=== PATIENT | male | born 1945 | race Caucasian/White ===

== ENCOUNTER 2016-08-17 09:40 | Emergency (ER) | payer OTHER, MEDICARE ==
[~2016-08-17] VITALS: Ht 177.8 cm; Wt 90.0 kg
[~2016-08-17 09:40] MED LIST: ALAV10TA10; ETOD300; OMEP20CA5; PROS5TAB2; TERA10CA3; Z.0.UNKNOWN
[2016-08-17 09:42] VITALS: BP 118/80; PULSE 100; RESP 18; TEMP 97.9; O2SAT 95
--- NOTE | 2016-08-17 09:52 | PD ---
Physical Exam Time Seen by Provider: 09:51 Narrative 71yo M [facility] for [facility] and no improvement despite antibiotics. Denies SOB or chest pain. Reports cough. Unknown fever. HX COPD. Patient seen in triage. VS reviewed. Awaiting bed placement. Data Data Last Documented VS Vital Signs Date Time Temp Pulse Resp B/P Pulse Ox O2 Delivery O2 Flow Rate FiO2 08/17/16 09:42 97.9 100 18 118/80 95 Room Air MDM Supervised Visit with DEL: Frieda Moe Aug 17, 2016 09:52
[2016-08-17 10:01] VITALS: BP 131/71; PULSE 85; RESP 15; TEMP 98.4; O2SAT 97
--- NOTE | 2016-08-17 10:14 | PD ---
HPI Chief Complaint: Cold / Flu Symptoms Time Seen by Provider: 09:59 Travel History International Travel<30 days: No Contact w/Intl Traveler<30days: No Traveled to known affect area: No History of Present Illness HPI 71-year-old male presents emergency department for evaluation of cough going on for the past 8 weeks. Patient does endorse history of COPD but denies smoking history. [facility] completed a course of [facility] for pneumonia and was sent here because he is still having symptoms. He states no objective fever but has no some intermittent chills. No nausea no vomiting no shortness of breath no chest pain no diarrhea. Patient does endorse cough productive of green sputum. 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) High Cholesterol: Yes Congestive Heart Failure: No COPD: Yes Dementia: Yes Diabetes: Yes Patient Takes Glucophage: No Diminished Hearing: No GERD: Yes (HIATAL HERNIA) Genitourinary: Yes (enlarged prostate) Hypertension: Yes Neurologic: Yes Respiratory: Yes (COPD) Myocardial Infarction: No Past Surgical History Surgical History: No Previous Surgery Abdominal Surgery: No Coronary Artery Bypass Graft: No Social History Alcohol Use: No Tobacco Use: No Substance Use: No Allergies-Medications (Allergen,Severity, Reaction): Coded Allergies: Niacin (Verified Allergy, Unknown, 08/17/16) Reported Meds & Prescriptions Reported Meds & Active Scripts Active Proair Hfa 8.5 GM Inh (Albuterol Sulfate) 90 Mcg/Act Aer 2 Puff INH Q4-6H PRN 108 mcg/actuation Review of Systems Except as stated in HPI: all other systems reviewed are Neg Physical Exam Narrative GENERAL: Well-developed well-nourished no apparent distress. Occasional dry cough. SKIN: Focused skin assessment warm/dry. HEAD: Atraumatic. Normocephalic. EYES: Pupils equal and round. No scleral icterus. No injection or drainage. ENT: No nasal bleeding or discharge. Mucous membranes pink and moist. NECK: Trachea midline. No JVD. CARDIOVASCULAR: Regular rate and rhythm. No murmur appreciated. RESPIRATORY: No accessory muscle use. Clear to auscultation. Breath sounds equal bilaterally. GASTROINTESTINAL: Abdomen soft, non-tender, nondistended. Hepatic and splenic margins not palpable. MUSCULOSKELETAL: No obvious deformities. No clubbing. No cyanosis. No edema. NEUROLOGICAL: Awake and alert. No obvious cranial nerve deficits. Motor grossly within normal limits. Normal speech. PSYCHIATRIC: Appropriate mood and affect; insight and judgment normal. Data Data Last Documented VS Vital Signs Date Time Temp Pulse Resp B/P Pulse Ox O2 Delivery O2 Flow Rate FiO2 08/17/16 12:32 80 15 127/80 96 08/17/16 10:30 98.8 Room Air Orders Electrocardiogram (08/17/16 10:11) Complete Blood Count With Diff (08/17/16 10:11) Comprehensive Metabolic Panel (08/17/16 10:11) D-Dimer (08/17/16 10:11) Magnesium (Mg) (08/17/16 10:11) Prothrombin Time / Inr (Pt) (08/17/16 10:11) Act Partial Throm Time (Ptt) (08/17/16 10:11) Troponin I (08/17/16 10:11) Ecg Monitoring (08/17/16 10:11) Iv Access Insert/Monitor (08/17/16 10:11) Oximetry (08/17/16 10:11) Oxygen Administration (08/17/16 10:11) Sodium Chloride 0.9% Flush (Ns Flush) (08/17/16 10:15) Chest, Pa & Lat (08/17/16 10:11) Albuterol Hfa Inh (Proair Hfa Inh) (08/17/16 12:15) Labs Laboratory Tests Test 08/17/16 10:10 White Blood Count 8.5 TH/MM3 Red Blood Count 5.08 MIL/MM3 Hemoglobin 14.3 GM/DL Hematocrit 43.6 % Mean Corpuscular Volume 85.7 FL Mean Corpuscular Hemoglobin 28.2 PG Mean Corpuscular Hemoglobin 32.9 % Concent Red Cell Distribution Width 15.5 % Platelet Count 207 TH/MM3 Mean Platelet Volume 9.3 FL Neutrophils (%) (Auto) 78.4 % Lymphocytes (%) (Auto) 11.5 % Monocytes (%) (Auto) 8.0 % Eosinophils (%) (Auto) 1.2 % Basophils (%) (Auto) 0.9 % Neutrophils # (Auto) 6.7 TH/MM3 Lymphocytes # (Auto) 1.0 TH/MM3 Monocytes # (Auto) 0.7 TH/MM3 Eosinophils # (Auto) 0.1 TH/MM3 Basophils # (Auto) 0.1 TH/MM3 CBC Comment DIFF FINAL Differential Comment Prothrombin Time 12.0 SEC Prothromb Time International 1.1 RATIO Ratio Activated Partial 29.6 SEC Thromboplast Time D-Dimer Quantitative (PE/DVT) 0.41 MG/L FEU Sodium Level 140 MEQ/L Potassium Level 3.6 MEQ/L Chloride Level 102 MEQ/L Carbon Dioxide Level 33.4 MEQ/L Anion Gap 5 MEQ/L Blood Urea Nitrogen 13 MG/DL Creatinine 1.03 MG/DL Estimat Glomerular Filtration 71 ML/MIN Rate Random Glucose 116 MG/DL Calcium Level 9.4 MG/DL Magnesium Level 1.3 MG/DL Total Bilirubin 0.9 MG/DL Aspartate Amino Transf 24 U/L (AST/SGOT) Alanine Aminotransferase 32 U/L (ALT/SGPT) Alkaline Phosphatase 74 U/L Troponin I LESS THAN 0.02 NG/ML Total Protein 7.4 GM/DL Albumin 3.8 GM/DL MDM Medical Decision Making Medical Screen Exam Complete: Yes Emergency Medical Condition: Yes Interpretation(s) EKG shows normal sinus rhythm with first-degree heart block and a borderline left axis deviation, normal R-wave progression. No concerning ST segment changes. QRS duration at the upper limits of normal at 112, MN interval of 206 , this is a borderline EKG. Differential Diagnosis Pneumonia, bronchitis, COPD, chronic bronchitis, sepsis unlikely. Narrative Course Patient roomed emergency department, basic labs and d-dimer are reassuring , chest x-ray within normal limits, EKG reassuring. Last 24 hours Impressions Chest X-Ray 08/17/16 1011 Signed Impressions: Service Date/Time: August 10:44 - CONCLUSION: No acute disease. Varun Acevedo MD Patient stable for discharge, discussed course of steroids but has fair contraindication of diabetes. Unlikely that steroids are going to be helpful. Recommended follow-up with a senior applications architect for pulmonary function testing. He appears well, saturating well, no fevers and no convincing signs of infection. He is counseled on return to ED criteria. Diagnosis Primary Impression: Bronchitis Med/Other Pt SpecificInfo: Prescription(s) given Scripts Albuterol 8.5 GM Inh (Proair Hfa 8.5 GM Inh)90 Mcg/Act Aer2 Puff INH Q4-6H PRN ( SHORTNESS OF BREATH) #1 INHALER Ref 0 108 mcg/actuation Prov:Hardik Rodrigues MD 08/17/16 Disposition: 01 DISCHARGE HOME Condition: Stable Hardik Rodrigues MD Aug 17, 2016 10:14
[2016-08-17] MEDS ORDERED: SODIUM CHLORIDE 0.9% FLUSH 10 ML FLUSH IVF PRN (10:15)
[2016-08-17 10:23] LABS: AUTOMATED NEUTROPHIL # 6.7 TH/MM3 (1.8-7.7); BASOPHIL # 0.1 TH/MM3 (0-0.2); BASOPHIL % 0.9 % (0.0-2.0); EOSINOPHIL # 0.1 TH/MM3 (0-0.4); EOSINOPHIL % 1.2 % (0.0-4.0); HEMATOCRIT 43.6 % (39.0-51.0); HEMO FLAGS DIFF FINAL; LYMPH % 11.5 % (9.0-44.0); MEAN CELL VOLUME 85.7 FL (80.0-100.0); MEAN CORPUSCULAR HEMOGLOBIN 28.2 PG (27.0-34.0); MEAN CORPUSCULAR HGB CONC 32.9 % (32.0-36.0); NEUT % 78.4 % (16.0-70.0); PLATELET COUNT 207 TH/MM3 (150-450); RED BLOOD COUNT 5.08 MIL/MM3 (4.50-5.90); RED CELL DISTRIBUTION WIDTH 15.5 % (11.6-17.2); WHITE BLOOD COUNT 8.5 TH/MM3 (4.0-11.0)
[2016-08-17 10:30] VITALS: RESP 14; TEMP 98.8; O2SAT 98
[2016-08-17 10:36] LABS: APTT (PATIENT) 29.6 SEC (24.3-30.1); INTERNATIONAL NORMALIZED RATIO 1.1 RATIO
[2016-08-17 10:39] LABS: ALT (GPT) 32 U/L (12-78); ANION GAP 5 MEQ/L (5-15); AST (GOT) 24 U/L (15-37); BICARBONATE 33.4 MEQ/L (21.0-32.0); BLOOD UREA NITROGEN 13 MG/DL (7-18); CHLORIDE 102 MEQ/L (98-107); GLOMERULAR FILTRATION RATE 71 ML/MIN (>89); MAGNESIUM 1.3 MG/DL (1.5-2.5); POTASSIUM 3.6 MEQ/L (3.5-5.1); SODIUM (NA) 140 MEQ/L (136-145)
[2016-08-17 10:42] LABS: ALKALINE PHOSPHATASE 74 U/L (45-117); TOTAL BILIRUBIN ADULT 0.9 MG/DL (0.2-1.0)
[2016-08-17] MEDS ORDERED: ALBUAER3 INH (12:09)
--- NOTE | 2016-08-17 12:09 | RADRPT ---
EXAM DATE/TIME: 08/17/2016 10:44 [facility] COMPARISON: No previous studies available for comparison. INDICATIONS : Cough. MEDICAL HISTORY : Chronic obstructive pulmonary disease. Diabetes. TIA. SURGICAL HISTORY : None. ENCOUNTER: Initial ACUITY: 3 weeks PAIN SCORE: 0/10 LOCATION: Bilateral chest FINDINGS: PA and lateral views of the chest demonstrate the lungs to be symmetrically aerated without evidence of mass, infiltrate or effusion. The cardiomediastinal contours are unremarkable. Osseous structure s are intact.CONCLUSION: No acute disease. Varun Acevedo MD on August 17, 2016 at 12:06 Board Certified Radiologist. This report was verified electronically.
[2016-08-17] MEDS ORDERED: ALBUTEROL SULFATE 90 MCG/ACT HFA 8 GM INHALER INH ONE (12:15)
[2016-08-17 12:32] VITALS: BP 127/80
--- NOTE | 2016-08-18 22:57 | EKG ---
Date Performed: 08/17/2016 Time Performed: 11:10:26 PTAGE: 71 years EKG: Sinus rhythm MODERATE INTRAVENTRICULAR CONDUCTION DELAY NONSPECIFIC T-WAVE ABNORMALITY BORDERLINE ECG PREVIOUS TRACING : 02/12/2009 09.52 DOCTOR: Lyssa Cannon Interpretating Date/Time 08/18/2016 22:57:15
== END 2016-08-17 12:42 | disposition home or self-care (01) ==
LOC: NEPC 09:40
DX: J40 Bronchitis, not specified as acute or chronic (principal); J44.9 Chronic obstructive pulmonary disease, unspecified; Z86.73 Personal history of transient ischemic attack (TIA), and cerebral infarction without residual deficits; I10 Essential (primary) hypertension; E78.00 Pure hypercholesterolemia, unspecified
CPT/HCPCS: 71020; 80053; 83735; 84484; 85025; 85379; 85610; 85730; 93005